=== PATIENT | male | born 1985 | race African-American/Black ===

== ENCOUNTER 2016-12-10 15:02 | Emergency (ER) | payer OTHER ==
[~2016-12-10] VITALS: Ht 188 cm; Wt 95.3 kg
[2016-12-10 15:05] VITALS: BP 137/89
== END 2016-12-10 16:01 | disposition home or self-care (01) ==
LOC: ER 15:03
DX: H10.89 Other conjunctivitis (principal)
CPT/HCPCS: A4606; Z7610